=== PATIENT | male | born 1975 | race Caucasian/White ===

== ENCOUNTER 2019-04-22 10:04 | Inpatient (IN) | payer BC ==
[2019-04-22 10:37] LABS: CHLORIDE,CL 98 mEq/L (98-106); SODIUM,NA 137 mEq/L (136-145)
[2019-04-22] MEDS ORDERED: Albuterol/Ipratropium 3.0-0.5 MG/3 ML Neb Soln NEB PRN ×3 (12:10→13:31)
[2019-04-22] MEDS ORDERED: Sodium Chloride 0.9% 10 ML Syringe FLUSH PRN (12:10)
[2019-04-22] MEDS ORDERED: cefTRIAXone 2 GM Vial IVPUSH ONE (12:19)
--- NOTE | 2019-04-22 12:30 | EDM.PDOC ---
ED HPI GENERAL MEDICAL PROBLEM - General Chief Complaint: Fever Stated Complaint: cough and fever with some sob for the past several days, thought had a dental issue and was placed on clinda without relief of his sx, denies any dental sx at present Time Seen by Provider: 04/22/19 11:30 Source of Information: Reports: Patient, Family History Limitations: Reports: No Limitations - History of Present Illness INITIAL COMMENTS - FREE TEXT/NARRATIVE: in with c/o cough and congestion with sob and fevber for past several days, no cp no ear, or throat sx, has had a congested nose, no unusual neck/back pain or stiffness Onset: Other (past several days) Duration: Day(s): Location: Reports: Other (as above) Quality: Reports: Ache Severity: Moderate Improves with: Reports: None Worsens with: Reports: Other (activity) Associated Symptoms: Reports: Cough, cough w sputum, Fever/Chills, Shortness of Breath, Weakness. Denies: Confusion, Chest Pain, Headaches, Nausea/Vomiting, Rash Treatments [employer] MANAGER: Reports: Acetaminophen, Other (see below) (clinda) - Related Data Allergies Allergy/AdvReac Type Severity Reaction Status Date / Time Penicillins Allergy Mild Rash Verified 04/22/19 12:20 lisinopril Allergy Cough Verified 04/22/19 12:29 Home Meds: Home Meds Aspirin [Fran Chewable Aspirin] 1 tab PO BEDTIME 04/22/19 [History] Losartan/Hydrochlorothiazide [Losartan-HCTZ 100-25 MG] 1 tab PO DAILY 04/22/19 [ History] Metoprolol Tartrate 1 tab PO BID 04/22/19 [History] Rosuvastatin Calcium 1 tab PO BEDTIME 04/22/19 [History] Past Medical History - Past Health History Medical/Surgical History: Denies Medical/Surgical History Cardiovascular History: Reports: High Cholesterol, Hypertension Respiratory History: Reports: Other (See Below) Other Respiratory History: hx of sleep apnea Gastrointestinal History: Reports: GERD - Past Surgical History HEENT Surgical History: Reports: Adenoidectomy, LASIK, Tonsillectomy, Other ( See Below) Other HEENT Surgeries/Procedures: uvula-ectomy Social & Family History - Family History Family Medical History: Noncontributory - Tobacco Use Smoking Status *Q: Former Smoker Used Tobacco, but Quit: Yes Month/Year Tobacco Last Used: 2011 - Recreational Drug Use Recreational Drug Use: No ED ROS GENERAL - Review of Systems Review Of Systems: See Below Constitutional: Reports: Fever, Chills, Weakness HEENT: Reports: Sinus Problem. Denies: Throat Pain, Throat Swelling, Vision Change Respiratory: Reports: Shortness of Breath, Cough. Denies: Wheezing Cardiovascular: Denies: Chest Pain, Palpitations, Syncope Endocrine: Reports: Fatigue GI/Abdominal: Denies: Abdominal Pain, Nausea, Vomiting : Reports: No Symptoms Musculoskeletal: Reports: No Symptoms. Denies: Neck Pain, Back Pain Skin: Reports: No Symptoms. Denies: Rash Neurological: Reports: No Symptoms. Denies: Confusion, Dizziness, Headache Psychiatric: Reports: No Symptoms Hematologic/Lymphatic: Reports: No Symptoms Immunologic: Reports: No Symptoms ED EXAM, GENERAL - Physical Exam Exam: See Below Exam Limited By: No Limitations General Appearance: Alert, WD/WN, No Apparent Distress Eye Exam: Bilateral Eye: PERRL Ears: Normal External Exam, Normal Canal, Hearing Grossly Normal, Normal TMs Ear Exam: Bilateral Ear: Auricle Normal, Canal Normal, TM normal Nose: Nasal Drainage Throat/Mouth: Normal Inspection, Normal Lips, Normal Teeth, Normal Gums, Normal Oropharynx, Normal Voice, No Airway Compromise Head: Atraumatic, Normocephalic Neck: Normal Inspection, Supple, Non-Tender, Full Range of Motion Respiratory/Chest: No Respiratory Distress, Lungs Clear, Normal Breath Sounds, Chest Non-Tender Cardiovascular: Normal Peripheral Pulses, Regular Rate, Rhythm, No Edema, No Murmur Peripheral Pulses: 2+: Radial (L), Radial (R) GI/Abdominal: Soft, Non-Tender Back Exam: Normal Inspection, Full Range of Motion Extremities: Normal Inspection, Normal Range of Motion, Non-Tender, No Pedal Edema, Normal Capillary Refill Neurological: Alert, Oriented, Normal Cognition, Normal Gait, No Motor/Sensory Deficits Psychiatric: Normal Affect, Normal Mood Skin Exam: Warm, Dry, Intact, Normal Color, No Rash Course - Vital Signs Last Recorded V/S: Last Vital Signs Temp 37.6 C 04/22/19 12:06 Pulse 104 H 04/22/19 12:06 Resp 18 04/22/19 12:06 BP 133/71 04/22/19 12:06 Pulse Ox 96 04/22/19 12:06 - Orders/Labs/Meds Orders: Active Orders 24 hr Category Date Time Status Patient Status [ADT] Routine ADT 04/22/19 12:11 Active Height and Weight [RC] UPON Care 04/22/19 12:10 Active Intake and Output [RC] QSHIFT Care 04/22/19 12:13 Active Oxygen Therapy [RC] PRN Care 04/22/19 12:11 Active Peripheral IV Care [RC] . DIRECTED Care 04/22/19 12:16 Active Pulse Oximetry [RC] PRN Care 04/22/19 12:13 Active RT Aerosol Therapy [RC] ASDIRECTED Care 04/22/19 12:16 Active Up ad Nette [RC] ASDIRECTED Care 04/22/19 12:10 Active VTE/DVT Education [RC] PER UNIT ROUTINE Care 04/22/19 12:11 Active Vital Signs [RC] Q4H Care 04/22/19 12:11 Active 2 Gram Sodium Diet [DIET] Diet 04/22/19 Lunch Active Chest 2V [CR] Routine Exams 04/22/19 Taken BASIC METABOLIC PANEL,BMP [CHEM] AM Lab 04/23/19 05:11 Ordered C-REACTIVE PROTEIN [CHEM] Stat Lab 04/22/19 12:10 Ordered CBC WITH AUTO DIFF [HEME] AM Lab 04/23/19 05:11 Ordered CRP, HIGH SENSITIVITY [REF] DAILY Lab 04/23/19 07:00 Ordered CULTURE BLOOD [BC] Stat Lab 04/22/19 12:16 Ordered CULTURE BLOOD [BC] Stat Lab 04/22/19 12:16 Ordered UA W/MICROSCOPIC [URIN] Stat Lab 04/22/19 12:10 Ordered Acetaminophen [Tylenol] Med 04/22/19 12:10 Ordered 650 mg PO Q4H PRN Albuterol/Ipratropium [DuoNeb 3.0-0.5 MG/3 ML] Med 04/22/19 12:10 Ordered 3 ml NEB Q4H PRN Azithromycin [Zithromax] 500 mg Med 04/22/19 12:30 Ordered Sodium Chloride 0.9% [Normal Saline] 250 ml IV Q24H Enoxaparin [Lovenox] Med 04/22/19 12:15 Ordered 40 mg SUBCUT Q24H Sodium Chloride 0.9% [Normal Saline] 1,000 ml Med 04/22/19 12:15 Ordered IV ASDIRECTED Sodium Chloride 0.9% [Saline Flush] Med 04/22/19 12:10 Ordered 10 ml FLUSH ASDIRECTED PRN cefTRIAXone [Rocephin] Med 04/22/19 12:30 Ordered 1 gm IVPUSH Q24H cefTRIAXone [Rocephin] Med 04/22/19 12:19 Once 2 gm IVPUSH ONETIME ONE Blood Culture x2 Reflex Set [OM.PC] Stat Oth 04/22/19 12:10 Ordered Peripheral IV Insertion Adult [OM.PC] Routine Oth 04/22/19 12:10 Ordered Resuscitation Status Routine Resus Stat 04/22/19 12:10 Ordered Medication Orders Acetaminophen (Tylenol) 650 mg PO Q4H PRN PRN Reason: Pain (Mild 1-3)/fever Albuterol/Ipratropium (Duoneb 3.0-0.5 Mg/3 Ml) 3 ml NEB Q4H PRN PRN Reason: Shortness Of Breath/wheezing Ceftriaxone Sodium (Rocephin) 2 gm IVPUSH ONETIME ONE Stop: 04/22/19 12:20 Ceftriaxone Sodium (Rocephin) 1 gm IVPUSH Q24H OSMAN Enoxaparin Sodium (Lovenox) 40 mg SUBCUT Q24H OSMAN Azithromycin 500 mg/ Sodium (Chloride) 250 mls @ 250 mls/hr IV Q24H OSMAN Sodium Chloride (Normal Saline) 1,000 mls @ 125 mls/hr IV ASDIRECTED OSMAN Sodium Chloride (Saline Flush) 10 ml FLUSH ASDIRECTED PRN PRN Reason: Keep Vein Open Labs: Laboratory Tests 04/22/19 04/22/19 Range/Units 10:17 10:17 WBC 2.5 L (5.0-10.0) 10^3/uL RBC 4.92 (4.50-6.00) 10^6/uL Hgb 14.5 (14.0-18.0) g/dL Hct 39.7 L (40.0-54.0) % MCV 80.7 L (82.0-94.0) fL MCH 29.5 (27.0-32.0) pg MCHC 36.5 (33.0-38.0) g/dL RDW Coeff of Lily 14.0 (11.0-15.0) % Plt Count 124 L (150-400) 10^3/uL Neut % (Auto) 65.7 (35-85) % Lymph % (Auto) 23.8 (10-55) % [place] % (Auto) 10.1 (0-16) % Eos % (Auto) 0 (0-5) % Baso % (Auto) 0.4 (0-3) % Neut # (Auto) 1.63 L (1.80-7.00) 10^3/uL Lymph # (Auto) 0.59 L (1.00-4.80) 10^3/uL [place] # (Auto) 0.25 (0.00-0.80) 10^3/uL Eos # (Auto) 0.00 (0.00-0.45) 10^3/uL Baso # (Auto) 0.01 10^3/uL Sodium 137 (136-145) mEq/L Potassium 4.2 (3.5-5.0) mEq/L Chloride 98 (98-106) mEq/L Carbon Dioxide 34 H (21-32) mmol/L BUN 14 (7-18) mg/dL Creatinine 1.0 (0.7-1.3) mg/dL Est Cr Clr Drug Dosing TNP Estimated GFR (MDRD) > 60 (>=60) mL/min Glucose 218 H (75-99) mg/dL Calcium 8.6 (8.4-10.1) mg/dL Meds: Medications Generic Name Dose Route Start Last Admin Trade Name Freq PRN Reason Stop Dose Admin Acetaminophen 650 mg 04/22/19 12:10 Tylenol PO Q4H PRN Pain (Mild 1-3)/fever Albuterol/Ipratropium 3 ml 04/22/19 12:10 Duoneb 3.0-0.5 Mg/3 Ml NEB Q4H PRN Shortness Of Breath/wheezing Ceftriaxone Sodium 2 gm 04/22/19 12:19 Rocephin IVPUSH 04/22/19 12:20 ONETIME ONE Ceftriaxone Sodium 1 gm 04/22/19 12:30 Rocephin IVPUSH Q24H OSMAN Enoxaparin Sodium 40 mg 04/22/19 12:15 Lovenox SUBCUT Q24H OSMAN Azithromycin 500 mg/ Sodium 250 mls @ 250 mls/hr 04/22/19 12:30 Chloride IV Q24H OSMAN Sodium Chloride 1,000 mls @ 125 mls/hr 04/22/19 12:15 Normal Saline IV ASDIRECTED OSMAN Sodium Chloride 10 ml 04/22/19 12:10 Saline Flush FLUSH ASDIRECTED PRN Keep Vein Open Departure - Departure Time of Disposition: 12:31 Disposition: Admitted As Inpatient 67 Condition: Good Clinical Impression: Pneumonia, Fever, Shortness of breath, Neutropenia, Thrombocytopenia - Discharge Information *PRESCRIPTION DRUG MONITORING PROGRAM REVIEWED*: Not Applicable *COPY OF PRESCRIPTION DRUG MONITORING REPORT IN PATIENT KATHRIN: Not Applicable - Problem List & Annotations (1) Fever SNOMED Code(s): 607251914 Code(s): R50.9 - FEVER, UNSPECIFIED Status: Acute Priority: High Current Visit: Yes Qualifiers: Encounter type: initial encounter (2) Neutropenia SNOMED Code(s): 075672039 Code(s): D70.9 - NEUTROPENIA, UNSPECIFIED Status: Acute Priority: High Current Visit: Yes Qualifiers: Neutropenia type: unspecified Qualified Code(s): D70.9 - Neutropenia, unspecified (3) Pneumonia SNOMED Code(s): 751331144 Code(s): J18.9 - PNEUMONIA, UNSPECIFIED ORGANISM Status: Acute Priority: High Current Visit: Yes Qualifiers: Laterality: right Lung location: middle lobe of lung (4) Shortness of breath SNOMED Code(s): 113046014 Code(s): R06.02 - SHORTNESS OF BREATH Status: Acute Priority: High Current Visit: Yes (5) Thrombocytopenia SNOMED Code(s): 266427184 Code(s): D69.6 - THROMBOCYTOPENIA, UNSPECIFIED Status: Acute Priority: High Current Visit: Yes - Problem List Review Problem List Initiated/Reviewed/Updated: Yes - My Orders Last 24 Hours: My Active Orders 04/22/19 Chest 2V [CR] Routine 04/22/19 12:10 Height and Weight [RC] UPON Up ad Nette [RC] ASDIRECTED C-REACTIVE PROTEIN [CHEM] Stat UA W/MICROSCOPIC [URIN] Stat Acetaminophen [Tylenol] 650 mg PO Q4H PRN Albuterol/Ipratropium [DuoNeb 3.0-0.5 MG/3 ML] 3 ml NEB Q4H PRN Sodium Chloride 0.9% [Saline Flush] 10 ml FLUSH ASDIRECTED PRN Blood Culture x2 Reflex Set [OM.PC] Stat Peripheral IV Insertion Adult [OM.PC] Routine Resuscitation Status Routine 04/22/19 12:11 Patient Status [ADT] Routine Oxygen Therapy [RC] PRN VTE/DVT Education [RC] PER UNIT ROUTINE Vital Signs [RC] Q4H 04/22/19 12:13 Intake and Output [RC] QSHIFT Pulse Oximetry [RC] PRN 04/22/19 12:15 Enoxaparin [Lovenox] 40 mg SUBCUT Q24H Sodium Chloride 0.9% [Normal Saline] 1,000 ml IV ASDIRECTED 04/22/19 12:16 Peripheral IV Care [RC] . DIRECTED RT Aerosol Therapy [RC] ASDIRECTED CULTURE BLOOD [BC] Stat CULTURE BLOOD [BC] Stat 04/22/19 12:19 cefTRIAXone [Rocephin] 2 gm IVPUSH ONETIME ONE 04/22/19 12:30 Azithromycin [Zithromax] 500 mg Sodium Chloride 0.9% [Normal Saline] 250 ml IV Q24H cefTRIAXone [Rocephin] 1 gm IVPUSH Q24H 04/22/19 Lunch 2 Gram Sodium Diet [DIET] 04/23/19 05:11 BASIC METABOLIC PANEL,BMP [CHEM] AM CBC WITH AUTO DIFF [HEME] AM 04/23/19 07:00 CRP, HIGH SENSITIVITY [REF] DAILY - Assessment/Plan Admission H&P: Please use this note as an admission H&P Last 24 Hours: My Active Orders 04/22/19 Chest 2V [CR] Routine 04/22/19 12:10 Height and Weight [RC] UPON Up ad Nette [RC] ASDIRECTED C-REACTIVE PROTEIN [CHEM] Stat UA W/MICROSCOPIC [URIN] Stat Acetaminophen [Tylenol] 650 mg PO Q4H PRN Albuterol/Ipratropium [DuoNeb 3.0-0.5 MG/3 ML] 3 ml NEB Q4H PRN Sodium Chloride 0.9% [Saline Flush] 10 ml FLUSH ASDIRECTED PRN Blood Culture x2 Reflex Set [OM.PC] Stat Peripheral IV Insertion Adult [OM.PC] Routine Resuscitation Status Routine 04/22/19 12:11 Patient Status [ADT] Routine Oxygen Therapy [RC] PRN VTE/DVT Education [RC] PER UNIT ROUTINE Vital Signs [RC] Q4H 06/15/19 12:13 Intake and Output [RC] QSHIFT Pulse Oximetry [RC] PRN 04/22/19 12:15 Enoxaparin [Lovenox] 40 mg SUBCUT Q24H Sodium Chloride 0.9% [Normal Saline] 1,000 ml IV ASDIRECTED 04/22/19 12:16 Peripheral IV Care [RC] . DIRECTED RT Aerosol Therapy [RC] ASDIRECTED CULTURE BLOOD [BC] Stat CULTURE BLOOD [BC] Stat 04/22/19 12:19 cefTRIAXone [Rocephin] 2 gm IVPUSH ONETIME ONE 04/22/19 12:30 Azithromycin [Zithromax] 500 mg Sodium Chloride 0.9% [Normal Saline] 250 ml IV Q24H cefTRIAXone [Rocephin] 1 gm IVPUSH Q24H 04/22/19 Lunch 2 Gram Sodium Diet [DIET] 04/23/19 05:11 BASIC METABOLIC PANEL,BMP [CHEM] AM CBC WITH AUTO DIFF [HEME] AM 04/23/19 07:00 CRP, HIGH SENSITIVITY [REF] DAILY Plan: will admit to the hospital in observation, will start on IVF with Rocephin and zithromax IV, will give HHN tx of duoneb q4hr and will reassess in the am. It is unclear why his WBC and PLT are low, will monitor them. will make changes as needed
[2019-04-22] MEDS ORDERED: Enoxaparin 40 MG/0.4 ML Syringe SUBCUT SCH (13:00)
[2019-04-22] MEDS: Azithromycin 500 MG in Sodium Chloride 0.9% 250 ML IV SCH (13:55)
[2019-04-22] MEDS: Sodium Chloride 0.9% 1,000 ML IV SCH ×2 (13:55→23:07)
[2019-04-22] MEDS: Acetaminophen 325 MG Tab PO PRN ×2 (14:09→20:01)
[2019-04-22] MEDS: Albuterol/Ipratropium 3.0-0.5 MG/3 ML Neb Soln NEB SCH ×3 (14:09→19:59)
[2019-04-22] MEDS ORDERED: Simvastatin 40 MG Tab PO SCH (20:00)
[2019-04-22] MEDS: Metoprolol Tartrate 50 MG Tab PO SCH (20:01)
[2019-04-22] MEDS: Aspirin 81 MG Tab.Chew PO SCH (20:01)
[2019-04-22] MEDS: Temazepam 15 MG Cap PO PRN (23:06)
[2019-04-23] MEDS: Ibuprofen 200 MG Tab PO PRN ×3 (03:36→23:09)
[2019-04-23] MEDS: Albuterol/Ipratropium 3.0-0.5 MG/3 ML Neb Soln NEB SCH ×4 (07:55→20:17)
[2019-04-23] MEDS: LOSARTAN PO SCH (07:56)
[2019-04-23] MEDS: Metoprolol Tartrate 50 MG Tab PO SCH ×2 (07:56→20:17)
[2019-04-23] MEDS: HCTZ PO SCH (07:56)
[2019-04-23] MEDS ORDERED: Hydrochlorothiazide 25 MG Tab PO SCH (08:00)
[2019-04-23] MEDS ORDERED: HYDROCHLOROTHIAZIDE PO SCH (08:00)
[2019-04-23] MEDS ORDERED: Losartan 100 MG Tab PO SCH (08:00)
[2019-04-23] MEDS ORDERED: LOSARTAN PO SCH (08:00)
[2019-04-23 08:29] LABS: CHLORIDE,CL 99 mEq/L (98-106); SODIUM,NA 138 mEq/L (136-145)
[2019-04-23] MEDS: cefTRIAXone 1 GM Vial IVPUSH SCH (11:10)
--- NOTE | 2019-04-23 11:44 | PCM.PN ---
- General Info Date of Service: 04/23/19 Admission Dx/Problem (Free Text): RML pneumonia - Review of Systems General: Reports: Fever, Fatigue HEENT: Reports: No Symptoms Pulmonary: Reports: Shortness of Breath, Cough. Denies: Wheezing Cardiovascular: Reports: No Symptoms. Denies: Chest Pain Gastrointestinal: Reports: No Symptoms. Denies: Abdominal Pain, Nausea, Vomiting Genitourinary: Reports: No Symptoms Musculoskeletal: Reports: No Symptoms Skin: Reports: No Symptoms Neurological: Reports: No Symptoms Psychiatric: Reports: No Symptoms - Patient Data Vitals - Most Recent: Last Vital Signs Temp 37.3 C 04/23/19 11:05 Pulse 94 04/23/19 11:05 Resp 18 04/23/19 11:05 BP 114/63 04/23/19 11:05 Pulse Ox 100 04/23/19 11:05 Weight - Most Recent: 158.757 kg I&O - Last 24 Hours: Intake & Output 04/22/19 04/23/19 04/23/19 22:59 06:59 14:59 Intake Total 1000 Balance 1000 Lab Results Last 24 Hours: Laboratory Results - last 24 hr 04/22/19 04/22/19 04/23/19 Range/Units 10:17 12:10 08:05 WBC 2.4 L (5.0-10.0) 10^3/uL RBC 4.42 L (4.50-6.00) 10^6/uL Hgb 13.0 L (14.0-18.0) g/dL Hct 36.3 L (40.0-54.0) % MCV 82.1 (82.0-94.0) fL MCH 29.4 (27.0-32.0) pg MCHC 35.8 (33.0-38.0) g/dL RDW Coeff of Lily 14.0 (11.0-15.0) % Plt Count 105 L (150-400) 10^3/uL Neut % (Auto) 52.2 (35-85) % Lymph % (Auto) 36.1 (10-55) % [place] % (Auto) 10.9 (0-16) % Eos % (Auto) 0.4 (0-5) % Baso % (Auto) 0.4 (0-3) % Neut # (Auto) 1.24 L (1.80-7.00) 10^3/uL Lymph # (Auto) 0.86 L (1.00-4.80) 10^3/uL [place] # (Auto) 0.26 (0.00-0.80) 10^3/uL Eos # (Auto) 0.01 (0.00-0.45) 10^3/uL Baso # (Auto) 0.01 10^3/uL Sodium (136-145) mEq/L Potassium (3.5-5.0) mEq/L Chloride (98-106) mEq/L Carbon Dioxide (21-32) mmol/L BUN (7-18) mg/dL Creatinine (0.7-1.3) mg/dL Est Cr Clr Drug Dosing mL/min Estimated GFR (MDRD) (>=60) mL/min Glucose (75-99) mg/dL Calcium (8.4-10.1) mg/dL C-Reactive Protein 8.6 H (0.2-0.8) mg/dL Urine Color Yellow (YELLOW) Urine Appearance Cloudy (CLEAR) Urine pH 5.5 (4.5-8.0) Ur Specific [place] 1.015 (1.003-1.020) Urine Protein Negative (NEGATIVE) mg/dL Urine Glucose (UA) 250 H (NEGATIVE) mg/dL Urine Ketones Negative (NEGATIVE) mg/dL Urine Occult Blood Negative (NEGATIVE) Urine Nitrite Negative (NEGATIVE) Urine Bilirubin Negative (NEGATIVE) Urine Urobilinogen 0.2 (0.2-1.0) EU/dL Ur Leukocyte Esterase Negative (NEGATIVE) Urine RBC Not seen (0-5) /HPF Urine WBC 0-5 (0-5) /HPF Ur Squamous Epith Cells Rare (NOT SEEN) /HPF Amorphous Sediment Many H (NOT SEEN) /HPF Urine Bacteria Occasional H (NOT SEEN) /HPF 04/23/19 04/23/19 Range/Units 08:05 08:05 WBC (5.0-10.0) 10^3/uL RBC (4.50-6.00) 10^6/uL Hgb (14.0-18.0) g/dL Hct (40.0-54.0) % MCV (82.0-94.0) fL MCH (27.0-32.0) pg MCHC (33.0-38.0) g/dL RDW Coeff of Lily (11.0-15.0) % Plt Count (150-400) 10^3/uL Neut % (Auto) (35-85) % Lymph % (Auto) (10-55) % [place] % (Auto) (0-16) % Eos % (Auto) (0-5) % Baso % (Auto) (0-3) % Neut # (Auto) (1.80-7.00) 10^3/uL Lymph # (Auto) (1.00-4.80) 10^3/uL [place] # (Auto) (0.00-0.80) 10^3/uL Eos # (Auto) (0.00-0.45) 10^3/uL Baso # (Auto) 10^3/uL Sodium 138 (136-145) mEq/L Potassium 3.9 (3.5-5.0) mEq/L Chloride 99 (98-106) mEq/L Carbon Dioxide 30 (21-32) mmol/L BUN 13 (7-18) mg/dL Creatinine 0.9 (0.7-1.3) mg/dL Est Cr Clr Drug Dosing 141.71 mL/min Estimated GFR (MDRD) > 60 (>=60) mL/min Glucose 211 H (75-99) mg/dL Calcium 8.1 L (8.4-10.1) mg/dL C-Reactive Protein 12.0 H (0.2-0.8) mg/dL Urine Color (YELLOW) Urine Appearance (CLEAR) Urine pH (4.5-8.0) Ur Specific [place] (1.003-1.020) Urine Protein (NEGATIVE) mg/dL Urine Glucose (UA) (NEGATIVE) mg/dL Urine Ketones (NEGATIVE) mg/dL Urine Occult Blood (NEGATIVE) Urine Nitrite (NEGATIVE) Urine Bilirubin (NEGATIVE) Urine Urobilinogen (0.2-1.0) EU/dL Ur Leukocyte Esterase (NEGATIVE) Urine RBC (0-5) /HPF Urine WBC (0-5) /HPF Ur Squamous Epith Cells (NOT SEEN) /HPF Amorphous Sediment (NOT SEEN) /HPF Urine Bacteria (NOT SEEN) /HPF Med Orders - Current: Current Medications Acetaminophen (Tylenol) 650 mg PO Q4H PRN PRN Reason: Pain (Mild 1-3)/fever Last Admin: 04/22/19 20:01 Dose: 650 mg Albuterol/Ipratropium (Duoneb 3.0-0.5 Mg/3 Ml) 3 ml NEB QID [facility] Last Admin: 04/23/19 11:10 Dose: 3 ml Albuterol/Ipratropium (Duoneb 3.0-0.5 Mg/3 Ml) 3 ml NEB Q4H PRN PRN Reason: Dyspnea Aspirin (Aspirin) 81 mg PO BEDTIME [facility] Last Admin: 04/22/19 20:01 Dose: 81 mg Ceftriaxone Sodium (Rocephin) 1 gm IVPUSH Q24H [facility] Last Admin: 04/23/19 11:10 Dose: 1 gm Azithromycin 500 mg/ Sodium (Chloride) 250 mls @ 250 mls/hr IV Q24H [facility] Last Admin: 04/22/19 13:55 Dose: 250 mls/hr Sodium Chloride (Normal Saline) 1,000 mls @ 125 mls/hr IV ASDIRECTED [facility] Last Admin: 04/22/19 23:07 Dose: 125 mls/hr Ibuprofen (Motrin) 400 mg PO Q4H PRN PRN Reason: Fever Last Admin: 04/23/19 03:36 Dose: 400 mg Metoprolol Tartrate (Lopressor) 50 mg PO BID [facility] Last Admin: 04/23/19 07:56 Dose: 50 mg Ptom Losartan/ (Hctz 100/25 Mg Tab) 1 tab PO DAILY [facility] Last Admin: 04/23/19 07:56 Dose: 1 tab Ptom Rosuvastatin 10 Mg Tab 10 mg PO BEDTIME [facility] Sodium Chloride (Saline Flush) 10 ml FLUSH ASDIRECTED PRN PRN Reason: Keep Vein Open Temazepam (Restoril) 15 mg PO BEDTIME PRN PRN Reason: Insomnia Last Admin: 04/22/19 23:06 Dose: 15 mg Discontinued Medications Albuterol/Ipratropium (Duoneb 3.0-0.5 Mg/3 Ml) 3 ml NEB Q4H PRN PRN Reason: Shortness Of Breath/wheezing Albuterol/Ipratropium (Duoneb 3.0-0.5 Mg/3 Ml) 3 ml NEB QID PRN PRN Reason: Shortness Of Breath/wheezing Ceftriaxone Sodium (Rocephin) 2 gm IVPUSH ONETIME ONE Stop: 04/22/19 12:20 Last Admin: 04/22/19 13:52 Dose: 2 gm Enoxaparin Sodium (Lovenox) 40 mg SUBCUT Q24H [facility] Last Admin: 04/22/19 13:36 Dose: Not Given Hydrochlorothiazide (Hydrochlorothiazide) 25 mg PO DAILY [facility] Losartan Potassium (Cozaar) 100 mg PO DAILY [facility] Losartan/Hydrochlorothiazide 100mg-25mg 1 tab PO DAILY [facility] Simvastatin (Zocor) 40 mg PO BEDTIME [facility] Last Admin: 04/22/19 19:59 Dose: 40 mg - Exam General: Alert, Oriented Neck: Supple Lungs: Clear to Auscultation, Normal Respiratory Effort Cardiovascular: Regular Rate, Regular Rhythm. No: Murmurs GI/Abdominal Exam: Soft. No: Non-Tender Back Exam: Normal Inspection, Full Range of Motion Extremities: Normal Inspection, Normal Range of Motion, Non-Tender, No Pedal Edema, Normal Capillary Refill Peripheral Pulses: 2+: Radial (L), Posterior Tibial (L), Posterior Tibial (R) Skin: Warm, Dry, Intact Neurological: No New Focal Deficit Psy/Mental Status: Alert, Normal Affect, Normal Mood - Problem List & Annotations (1) Fever SNOMED Code(s): 305367380 Code(s): R50.9 - FEVER, UNSPECIFIED Status: Acute Priority: High Current Visit: Yes Qualifiers: Encounter type: initial encounter (2) Neutropenia SNOMED Code(s): 562207894 Code(s): D70.9 - NEUTROPENIA, UNSPECIFIED Status: Acute Priority: High Current Visit: Yes Qualifiers: Neutropenia type: unspecified Qualified Code(s): D70.9 - Neutropenia, unspecified (3) Pneumonia SNOMED Code(s): 234246408 Code(s): J18.9 - PNEUMONIA, UNSPECIFIED ORGANISM Status: Acute Priority: High Current Visit: Yes Qualifiers: Laterality: right Lung location: middle lobe of lung (4) Shortness of breath SNOMED Code(s): 316329515 Code(s): R06.02 - SHORTNESS OF BREATH Status: Acute Priority: High Current Visit: Yes (5) Thrombocytopenia SNOMED Code(s): 738811091 Code(s): D69.6 - THROMBOCYTOPENIA, UNSPECIFIED Status: Acute Priority: High Current Visit: Yes - Problem List Review Problem List Initiated/Reviewed/Updated: Yes - My Orders Last 24 Hours: My Active Orders 04/22/19 12:10 Up ad Nette [RC] .PRN Acetaminophen [Tylenol] 650 mg PO Q4H PRN Sodium Chloride 0.9% [Saline Flush] 10 ml FLUSH ASDIRECTED PRN Blood Culture x2 Reflex Set [OM.PC] Stat Peripheral IV Insertion Adult [OM.PC] Routine Resuscitation Status Routine 04/22/19 12:11 Patient Status [ADT] Routine Oxygen Therapy [RC] .PRN Vital Signs [RC] 0000,0400,0800,1200,1600,2000 04/22/19 12:13 Intake and Output [RC] .PRN Pulse Oximetry [RC] .PRN 04/22/19 12:15 Sodium Chloride 0.9% [Normal Saline] 1,000 ml IV ASDIRECTED 04/22/19 12:16 Peripheral IV Care [RC] 0800,2000 RT Aerosol Therapy [RC] 0800,1200,1600,2000 CULTURE BLOOD [BC] Stat CULTURE BLOOD [BC] Stat 04/22/19 13:00 Azithromycin [Zithromax] 500 mg Sodium Chloride 0.9% [Normal Saline] 250 ml IV Q24H 04/22/19 13:30 Albuterol/Ipratropium [DuoNeb 3.0-0.5 MG/3 ML] 3 ml NEB QID 04/22/19 13:31 Albuterol/Ipratropium [DuoNeb 3.0-0.5 MG/3 ML] 3 ml NEB Q4H PRN 04/22/19 20:00 Aspirin 81 mg PO BEDTIME Metoprolol Tartrate [Lopressor] 50 mg PO BID 04/22/19 20:08 Temazepam [Restoril] 15 mg PO BEDTIME PRN 04/22/19 22:56 Ibuprofen [Motrin] 400 mg PO Q4H PRN 04/22/19 Lunch 2 Gram Sodium Diet [DIET] 04/23/19 08:00 Losartan/Hctz 100/25 Mg 1 tab PO DAILY 04/23/19 12:00 cefTRIAXone [Rocephin] 1 gm IVPUSH Q24H 04/23/19 20:00 Rosuvastatin 10 mg PO BEDTIME - Plan Plan:: 04/23/2019; 1130am pt still feels weak, continues with a cough and has had a low grade fever off and on, highest has been 100.2, the pts wbc is unchanged, his crp has increased , his plt has decreased, will keep in the hospital with continued IVF, and antibx IV, will continue HHN and ICS, will repeat blood work in the am and cxr. will adjust tx as needed, I spent 20 minutes discussing condition and tx plan with pt and his
[2019-04-23] MEDS: Azithromycin 500 MG in Sodium Chloride 0.9% 250 ML IV SCH (12:01)
[2019-04-23] MEDS ORDERED: ROSUVASTATIN 10 MG PO SCH (20:00)
[2019-04-23] MEDS: Aspirin 81 MG Tab.Chew PO SCH (20:18)
[2019-04-23] MEDS: Temazepam 15 MG Cap PO PRN (23:01)
[2019-04-24] MEDS: Acetaminophen 325 MG Tab PO PRN ×2 (00:21→10:12)
[2019-04-24] MEDS: Codeine/Promethazine 10-6.25 MG/5 ML Syrup 5 ML UD Cup PO PRN ×2 (00:21→10:07)
[2019-04-24] MEDS ORDERED: Codeine/Promethazine 10-6.25 MG/5 ML Syrup 5 ML UD Cup ONE (00:26)
[2019-04-24] MEDS: Albuterol/Ipratropium 3.0-0.5 MG/3 ML Neb Soln NEB SCH ×4 (07:45→19:38)
[2019-04-24] MEDS: Metoprolol Tartrate 50 MG Tab PO SCH ×2 (08:04→19:38)
[2019-04-24] MEDS: LOSARTAN PO SCH (08:05)
[2019-04-24] MEDS: HCTZ PO SCH (08:05)
[2019-04-24 08:12] LABS: CHLORIDE,CL 100 mEq/L (98-106); SODIUM,NA 138 mEq/L (136-145)
[2019-04-24] MEDS: methylPREDNISolone Sodium Succinate 125 MG/2 ML SDV IVPUSH SCH (09:48)
[2019-04-24] MEDS: cefTRIAXone 1 GM Vial IVPUSH SCH (12:05)
[2019-04-24] MEDS: Azithromycin 500 MG in Sodium Chloride 0.9% 250 ML IV SCH (12:05)
[2019-04-24] MEDS: Aspirin 81 MG Tab.Chew PO SCH (19:38)
[2019-04-24] MEDS ORDERED: Simvastatin 40 MG Tab PO SCH (20:00)
--- NOTE | 2019-04-24 21:10 | PCM.PN ---
- General Info Date of Service: 04/24/19 Admission Dx/Problem (Free Text): RML pneumonia Functional Status: Reports: Pain Controlled, Tolerating Diet, Ambulating - Review of Systems General: Reports: Fever, Weakness, Fatigue, Malaise HEENT: Reports: Sinus Congestion, Rhinitis Pulmonary: Reports: Shortness of Breath, Cough, Wheezing. Denies: Sputum Cardiovascular: Denies: Chest Pain, Edema, Lightheadedness Gastrointestinal: Reports: Decreased Appetite. Denies: Abdominal Pain, Nausea, Vomiting Genitourinary: Reports: No Symptoms Musculoskeletal: Reports: No Symptoms Skin: Reports: No Symptoms Neurological: Reports: No Symptoms - Patient Data Vitals - Most Recent: Last Vital Signs Temp 95.6 F 04/24/19 16:00 Pulse 95 04/24/19 19:38 Resp 16 04/24/19 16:00 BP 153/76 H 04/24/19 19:38 Pulse Ox 97 04/24/19 16:00 Weight - Most Recent: 350 lb Lab Results Last 24 Hours: Laboratory Results - last 24 hr 04/24/19 04/24/19 Range/Units 07:00 07:00 WBC 2.7 L (5.0-10.0) 10^3/uL RBC 4.44 L (4.50-6.00) 10^6/uL Hgb 13.0 L (14.0-18.0) g/dL Hct 36.4 L (40.0-54.0) % MCV 82.0 (82.0-94.0) fL MCH 29.3 (27.0-32.0) pg MCHC 35.7 (33.0-38.0) g/dL RDW Coeff of Lily 14.3 (11.0-15.0) % Plt Count 107 L (150-400) 10^3/uL Neut % (Auto) 64.1 (35-85) % Lymph % (Auto) 23.5 (10-55) % [place] % (Auto) 11.6 (0-16) % Eos % (Auto) 0.4 (0-5) % Baso % (Auto) 0.4 (0-3) % Neut # (Auto) 1.72 L (1.80-7.00) 10^3/uL Lymph # (Auto) 0.63 L (1.00-4.80) 10^3/uL [place] # (Auto) 0.31 (0.00-0.80) 10^3/uL Eos # (Auto) 0.01 (0.00-0.45) 10^3/uL Baso # (Auto) 0.01 10^3/uL Sodium 138 (136-145) mEq/L Potassium 4.6 (3.5-5.0) mEq/L Chloride 100 (98-106) mEq/L Carbon Dioxide 35 H (21-32) mmol/L BUN 13 (7-18) mg/dL Creatinine 0.9 (0.7-1.3) mg/dL Est Cr Clr Drug Dosing 141.71 mL/min Estimated GFR (MDRD) > 60 (>=60) mL/min Glucose 221 H (75-99) mg/dL Calcium 8.3 L (8.4-10.1) mg/dL C-Reactive Protein 14.5 H (0.2-0.8) mg/dL Barry Results Last 24 Hours: Microbiology 04/23/19 08:10 Aerobic Blood Culture - Preliminary Blood - Venous - Lab Draw NO GROWTH AFTER 1 DAY Anaerobic Blood Culture - Preliminary NO GROWTH AFTER 1 DAY 04/23/19 08:05 Aerobic Blood Culture - Preliminary Blood - Venous NO GROWTH AFTER 1 DAY Anaerobic Blood Culture - Preliminary NO GROWTH AFTER 1 DAY Med Orders - Current: Current Medications Acetaminophen (Tylenol) 650 mg PO Q4H PRN PRN Reason: Pain (Mild 1-3)/fever Last Admin: 04/24/19 10:12 Dose: 650 mg Albuterol/Ipratropium (Duoneb 3.0-0.5 Mg/3 Ml) 3 ml NEB QID [facility] Last Admin: 04/24/19 19:38 Dose: 3 ml Albuterol/Ipratropium (Duoneb 3.0-0.5 Mg/3 Ml) 3 ml NEB Q4H PRN PRN Reason: Dyspnea Aspirin (Aspirin) 81 mg PO BEDTIME [facility] Last Admin: 04/24/19 19:38 Dose: 81 mg Ceftriaxone Sodium (Rocephin) 1 gm IVPUSH Q24H [facility] Last Admin: 04/24/19 12:05 Dose: 1 gm Hydrochlorothiazide (Hydrochlorothiazide) 25 mg PO DAILY [facility] Azithromycin 500 mg/ Sodium (Chloride) 250 mls @ 250 mls/hr IV DAILY@1200 [facility] Last Admin: 04/24/19 12:05 Dose: 250 mls/hr Ibuprofen (Motrin) 400 mg PO Q4H PRN PRN Reason: Fever Last Admin: 04/23/19 23:09 Dose: 400 mg Losartan Potassium (Cozaar) 100 mg PO DAILY [facility] Methylprednisolone Sodium Succinate (Solu-Medrol) 125 mg IVPUSH DAILY [facility] Last Admin: 04/24/19 09:48 Dose: 125 mg Metoprolol Tartrate (Lopressor) 50 mg PO BID [facility] Last Admin: 04/24/19 19:38 Dose: 50 mg Promethazine HCl/Codeine (Phenergan With Codeine) 5 ml PO Q6H PRN PRN Reason: Cough Last Admin: 04/24/19 10:07 Dose: 5 ml Simvastatin (Zocor) 40 mg PO BEDTIME [facility] Last Admin: 04/24/19 19:39 Dose: 40 mg Sodium Chloride (Saline Flush) 10 ml FLUSH ASDIRECTED PRN PRN Reason: Keep Vein Open Temazepam (Restoril) 15 mg PO BEDTIME PRN PRN Reason: Insomnia Last Admin: 04/23/19 23:01 Dose: 15 mg Discontinued Medications Albuterol/Ipratropium (Duoneb 3.0-0.5 Mg/3 Ml) 3 ml NEB Q4H PRN PRN Reason: Shortness Of Breath/wheezing Albuterol/Ipratropium (Duoneb 3.0-0.5 Mg/3 Ml) 3 ml NEB QID PRN PRN Reason: Shortness Of Breath/wheezing Ceftriaxone Sodium (Rocephin) 2 gm IVPUSH ONETIME ONE Stop: 04/22/19 12:20 Last Admin: 04/22/19 13:52 Dose: 2 gm Enoxaparin Sodium (Lovenox) 40 mg SUBCUT Q24H [facility] Last Admin: 04/22/19 13:36 Dose: Not Given Hydrochlorothiazide (Hydrochlorothiazide) 25 mg PO DAILY [facility] Azithromycin 500 mg/ Sodium (Chloride) 250 mls @ 250 mls/hr IV Q24H [facility] Last Admin: 04/23/19 12:01 Dose: 250 mls/hr Sodium Chloride (Normal Saline) 1,000 mls @ 125 mls/hr IV ASDIRECTED [facility] Last Admin: 04/22/19 23:07 Dose: 125 mls/hr Losartan Potassium (Cozaar) 100 mg PO DAILY [facility] Losartan/Hydrochlorothiazide 100mg-25mg 1 tab PO DAILY [facility] Ptom Losartan/ (Hctz 100/25 Mg Tab) 1 tab PO DAILY [facility] Last Admin: 04/24/19 08:05 Dose: 1 tab Ptom Rosuvastatin 10 Mg Tab 10 mg PO BEDTIME [facility] Last Admin: 04/23/19 20:17 Dose: 10 mg Promethazine HCl/Codeine (Phenergan With Codeine) Confirm Administered Dose 5 ml .ROUTE .STK-MED ONE Stop: 04/24/19 00:27 Last Admin: 04/24/19 00:25 Dose: Not Given Simvastatin (Zocor) 40 mg PO BEDTIME [facility] Last Admin: 04/22/19 19:59 Dose: 40 mg - Exam General: Alert, Oriented HEENT: Mucous Membr. Moist/[place] Neck: Supple Lungs: Normal Respiratory Effort, Decreased Breath Sounds Cardiovascular: Regular Rate, Regular Rhythm GI/Abdominal Exam: Normal Bowel Sounds, Soft, Non-Tender Extremities: Normal Inspection, No Pedal Edema Skin: Warm, Dry Neurological: No New Focal Deficit - Problem List & Annotations (1) Pneumonia SNOMED Code(s): 982722188 Code(s): J18.9 - PNEUMONIA, UNSPECIFIED ORGANISM Status: Acute Priority: High Current Visit: Yes Qualifiers: Pneumonia type: due to unspecified organism Laterality: right Lung location: middle lobe of lung Qualified Code(s): J18.1 - Lobar pneumonia, unspecified organism - Problem List Review Problem List Initiated/Reviewed/Updated: Yes - My Orders Last 24 Hours: My Active Orders 04/24/19 09:12 Patient Status [ADT] Routine 04/24/19 09:15 methylPREDNISolone Sod Succ [Solu-MEDROL] 125 mg IVPUSH DAILY 04/25/19 05:11 BASIC METABOLIC PANEL,BMP [CHEM] AM C-REACTIVE PROTEIN [CHEM] AM CBC WITH AUTO DIFF [HEME] AM - Assessment Assessment:: RML Pneumonia - Plan Plan:: 04/23/2019; 1130am pt still feels weak, continues with a cough and has had a low grade fever off and on, highest has been 100.2, the pts wbc is unchanged, his crp has increased , his plt has decreased, will keep in the hospital with continued IVF, and antibx IV, will continue HHN and ICS, will repeat blood work in the am and cxr. will adjust tx as needed, I spent 20 minutes discussing condition and tx plan with pt and his 04-24-2019 Patient continues to feel fatigue and shortness of breath. Reports wheezing this am. Fever spiked to 102.5 at midnight. Continues to have ongoing cough, nonproductive. WBC still remains low at 2.7, platelets 107. Hemoglobin normal. Blood cultures negative. CRP continues to increase, 14.5 today. Will continue with IV Zithromax and Rocephin. Nebs. Add Solu Medrol daily. Repeat labs due to ongoing leukopenia and neutropenia. Inappropriate for discharge.
[2019-04-25] MEDS: Codeine/Promethazine 10-6.25 MG/5 ML Syrup 5 ML UD Cup PO PRN (02:24)
[2019-04-25] MEDS ORDERED: Hydrochlorothiazide 25 MG Tab PO SCH (08:00)
[2019-04-25] MEDS ORDERED: Losartan 100 MG Tab PO SCH (08:00)
[2019-04-25 08:10] LABS: CHLORIDE,CL 99 mEq/L (98-106); SODIUM,NA 136 mEq/L (136-145)
[2019-04-25] MEDS: Albuterol/Ipratropium 3.0-0.5 MG/3 ML Neb Soln NEB SCH (08:11)
[2019-04-25] MEDS: Metoprolol Tartrate 50 MG Tab PO SCH (08:11)
[2019-04-25] MEDS: methylPREDNISolone Sodium Succinate 125 MG/2 ML SDV IVPUSH SCH (08:12)
[2019-04-25 08:29] LABS: HEMOGLOBIN A1C 7.7 % (4.8-6.2)
[2019-04-25] MEDS: cefTRIAXone 1 GM Vial IVPUSH SCH (09:02)
[2019-04-25] MEDS: Azithromycin 500 MG in Sodium Chloride 0.9% 250 ML IV SCH (09:06)
--- NOTE | 2019-04-25 21:45 | PCM.DCSUM1 ---
Discharge Summary - Hospital Course Free Text/Narrative:: Patient presented to ER with complaints of cough and fever. Has had increased weakness, shortness of breath. Had been noting increased sinus congestion, had tooth pain so thought was a dental issue. Was placed on Clindamycin and did not get much relief. WBC low at 2.5. CRP 8.6. Platelets low at 124. Urine negative. Chest xray shows RML pneumonia. Admitted and started on IV fluids, Zithromax and Rocephin. Neb treatments Diagnosis: Stroke: No Modified [place] Scale: No Symptoms at All Modified [place] Scale Score: 0 - Discharge Data Discharge Date: 04/25/19 Discharge Disposition: Home, Self-Care 01 Condition: Good - Discharge Diagnosis/Problem(s) (1) Pneumonia SNOMED Code(s): 728276807 ICD Code: J18.9 - PNEUMONIA, UNSPECIFIED ORGANISM Status: Acute Priority : High Qualifiers: Pneumonia type: due to unspecified organism Laterality: right Lung location: middle lobe of lung Qualified Code(s): J18.1 - Lobar pneumonia, unspecified organism - Patient Summary/Data Complications: none Hospital Course: Patient feeling better today. Has had concerns with weakness and shortness of breath. Was running fevers until yesterday. Wheezing at times. Appetite has been poor. Leukopenia present on admit, has persisted through hospital stay. Did improve to 3.8 today, platelets up to 174. Results likely related to infection, question viral in nature. Blood cultures negative. Blood sugars have been over 200, worse today after receiving steroid. A1C checked, 7.7. Relates that was on metformin about 6 months ago when it was 7.2, took for about 3 months and A1C had improved to 6.8. As he did not tolerate metformin well, has been trying diet and exercise. Admits that has been a struggle due to long work days as of late. Lung sounds improved. Has good air exchange throughout. Will discharge home on Ceftin and prednisone. Recheck labs prior to appointment with Frankie Little, check WBC and platelets. Discuss restarting diabetic meds at visit. Rest through the week. - Patient Instructions Diet: Diabetic Diet Activity: As Tolerated - Discharge Plan *PRESCRIPTION DRUG MONITORING PROGRAM REVIEWED*: Not Applicable *COPY OF PRESCRIPTION DRUG MONITORING REPORT IN PATIENT KATHRIN: Not Applicable Prescriptions/Med Rec: Cefuroxime [Ceftin] 250 mg PO BID #20 tab Codeine/Promethazine [Phenergan with Codeine] 5 ml PO Q6H PRN #180 ml PRN Reason: Cough predniSONE 20 mg PO WITHBREAKFAST #10 tab Home Medications: Home Meds Aspirin [Fran Chewable Aspirin] 1 tab PO BEDTIME 04/22/19 [History] Losartan/Hydrochlorothiazide [Losartan-HCTZ 100-25 MG] 1 tab PO DAILY 04/22/19 [ History] Metoprolol Tartrate 1 tab PO BID 04/22/19 [History] Rosuvastatin Calcium 1 tab PO BEDTIME 04/22/19 [History] Cefuroxime [Ceftin] 250 mg PO BID #20 tab 04/25/19 [Rx] Codeine/Promethazine [Phenergan with Codeine] 5 ml PO Q6H PRN #180 ml 04/25/19 [ Rx] predniSONE 20 mg PO WITHBREAKFAST #10 tab 04/25/19 [Rx] Patient Handouts: Community-Acquired Pneumonia, Adult Referrals: Iftkihar Little PA-C [Physician Assistant Case Manager] - (Follow up with Frankie Little in 2 weeks, lab and xray prior to appointment) - Discharge Summary/Plan Comment DC Time >30 min.: No - General Info Date of Service: 04/25/19 Admission Dx/Problem (Free Text: RML pneumonia Functional Status: Reports: Pain Controlled, Tolerating Diet, Ambulating - Review of Systems General: Reports: Weakness, Fatigue, Malaise. Denies: Fever HEENT: Reports: No Symptoms Pulmonary: Reports: Shortness of Breath, Cough Cardiovascular: Denies: Chest Pain, Edema, Lightheadedness Gastrointestinal: Denies: Abdominal Pain, Nausea, Vomiting Genitourinary: Reports: No Symptoms Musculoskeletal: Reports: No Symptoms Skin: Reports: No Symptoms Neurological: Reports: No Symptoms - Patient Data Vitals - Most Recent: Last Vital Signs Temp 96.6 F 04/25/19 08:00 Pulse 89 04/25/19 08:11 Resp 18 04/25/19 08:00 BP 138/78 04/25/19 08:14 Pulse Ox 95 04/25/19 08:00 Weight - Most Recent: 350 lb Lab Results - Last 24 hrs: Laboratory Results - last 24 hr 04/25/19 04/25/19 04/25/19 Range/Units 07:00 07:00 07:00 WBC 3.8 L (5.0-10.0) 10^3/uL RBC 4.67 (4.50-6.00) 10^6/uL Hgb 13.5 L (14.0-18.0) g/dL Hct 37.7 L (40.0-54.0) % MCV 80.7 L (82.0-94.0) fL MCH 28.9 (27.0-32.0) pg MCHC 35.8 (33.0-38.0) g/dL RDW Coeff of Lily 13.8 (11.0-15.0) % Plt Count 172 (150-400) 10^3/uL Neut % (Auto) 76.4 (35-85) % Lymph % (Auto) 14.9 (10-55) % [place] % (Auto) 8.2 (0-16) % Eos % (Auto) 0 (0-5) % Baso % (Auto) 0.5 (0-3) % Neut # (Auto) 2.87 (1.80-7.00) 10^3/uL Lymph # (Auto) 0.56 L (1.00-4.80) 10^3/uL [place] # (Auto) 0.31 (0.00-0.80) 10^3/uL Eos # (Auto) 0.00 (0.00-0.45) 10^3/uL Baso # (Auto) 0.02 10^3/uL Sodium 136 (136-145) mEq/L Potassium 4.1 (3.5-5.0) mEq/L Chloride 99 (98-106) mEq/L Carbon Dioxide 29 (21-32) mmol/L BUN 19 H (7-18) mg/dL Creatinine 0.9 (0.7-1.3) mg/dL Est Cr Clr Drug Dosing 141.71 mL/min Estimated GFR (MDRD) > 60 (>=60) mL/min Glucose 354 H* D (75-99) mg/dL Hemoglobin A1c 7.7 H (4.8-6.2) % Calcium 8.8 (8.4-10.1) mg/dL C-Reactive Protein 13.3 H (0.2-0.8) mg/dL ISABELLE Results - Last 24 hrs: Microbiology 04/23/19 08:10 Aerobic Blood Culture - Preliminary Blood - Venous - Lab Draw NO GROWTH AFTER 2 DAYS Anaerobic Blood Culture - Preliminary NO GROWTH AFTER 2 DAYS 04/23/19 08:05 Aerobic Blood Culture - Preliminary Blood - Venous NO GROWTH AFTER 2 DAYS Anaerobic Blood Culture - Preliminary NO GROWTH AFTER 2 DAYS Med Orders - Current: Current Medications Discontinued Medications Acetaminophen (Tylenol) 650 mg PO Q4H PRN PRN Reason: Pain (Mild 1-3)/fever Last Admin: 04/24/19 10:12 Dose: 650 mg Albuterol/Ipratropium (Duoneb 3.0-0.5 Mg/3 Ml) 3 ml NEB Q4H PRN PRN Reason: Shortness Of Breath/wheezing Albuterol/Ipratropium (Duoneb 3.0-0.5 Mg/3 Ml) 3 ml NEB QID PRN PRN Reason: Shortness Of Breath/wheezing Albuterol/Ipratropium (Duoneb 3.0-0.5 Mg/3 Ml) 3 ml NEB QID [facility] Last Admin: 04/25/19 08:11 Dose: 3 ml Albuterol/Ipratropium (Duoneb 3.0-0.5 Mg/3 Ml) 3 ml NEB Q4H PRN PRN Reason: Dyspnea Aspirin (Aspirin) 81 mg PO BEDTIME [facility] Last Admin: 04/24/19 19:38 Dose: 81 mg Ceftriaxone Sodium (Rocephin) 2 gm IVPUSH ONETIME ONE Stop: 04/22/19 12:20 Last Admin: 04/22/19 13:52 Dose: 2 gm Ceftriaxone Sodium (Rocephin) 1 gm IVPUSH Q24H [facility] Last Admin: 04/25/19 09:02 Dose: 1 gm Enoxaparin Sodium (Lovenox) 40 mg SUBCUT Q24H [facility] Last Admin: 04/22/19 13:36 Dose: Not Given Hydrochlorothiazide (Hydrochlorothiazide) 25 mg PO DAILY [facility] Hydrochlorothiazide (Hydrochlorothiazide) 25 mg PO DAILY [facility] Last Admin: 04/25/19 08:14 Dose: 25 mg Azithromycin 500 mg/ Sodium (Chloride) 250 mls @ 250 mls/hr IV Q24H [facility] Last Admin: 04/23/19 12:01 Dose: 250 mls/hr Sodium Chloride (Normal Saline) 1,000 mls @ 125 mls/hr IV ASDIRECTED [facility] Last Admin: 04/22/19 23:07 Dose: 125 mls/hr Azithromycin 500 mg/ Sodium (Chloride) 250 mls @ 250 mls/hr IV DAILY@1200 [facility] Last Admin: 04/25/19 09:06 Dose: 250 mls/hr Ibuprofen (Motrin) 400 mg PO Q4H PRN PRN Reason: Fever Last Admin: 04/23/19 23:09 Dose: 400 mg Losartan Potassium (Cozaar) 100 mg PO DAILY [facility] Losartan Potassium (Cozaar) 100 mg PO DAILY [facility] Last Admin: 04/25/19 08:14 Dose: 100 mg Methylprednisolone Sodium Succinate (Solu-Medrol) 125 mg IVPUSH DAILY [facility] Last Admin: 04/25/19 08:12 Dose: 125 mg Metoprolol Tartrate (Lopressor) 50 mg PO BID [facility] Last Admin: 04/25/19 08:11 Dose: 50 mg Losartan/Hydrochlorothiazide 100mg-25mg 1 tab PO DAILY [facility] Ptom Losartan/ (Hctz 100/25 Mg Tab) 1 tab PO DAILY [facility] Last Admin: 04/24/19 08:05 Dose: 1 tab Ptom Rosuvastatin 10 Mg Tab 10 mg PO BEDTIME [facility] Last Admin: 04/23/19 20:17 Dose: 10 mg Promethazine HCl/Codeine (Phenergan With Codeine) 5 ml PO Q6H PRN PRN Reason: Cough Last Admin: 04/25/19 02:24 Dose: 5 ml Promethazine HCl/Codeine (Phenergan With Codeine) Confirm Administered Dose 5 ml .ROUTE .STK-MED ONE Stop: 04/24/19 00:27 Last Admin: 04/24/19 00:25 Dose: Not Given Simvastatin (Zocor) 40 mg PO BEDTIME [facility] Last Admin: 04/22/19 19:59 Dose: 40 mg Simvastatin (Zocor) 40 mg PO BEDTIME [facility] Last Admin: 04/24/19 19:39 Dose: 40 mg Sodium Chloride (Saline Flush) 10 ml FLUSH ASDIRECTED PRN PRN Reason: Keep Vein Open Temazepam (Restoril) 15 mg PO BEDTIME PRN PRN Reason: Insomnia Last Admin: 04/23/19 23:01 Dose: 15 mg - Exam General: Reports: Alert, Oriented HEENT: Reports: Mucous Membr. Moist/[place] Neck: Reports: Supple Lungs: Reports: Clear to Auscultation, Normal Respiratory Effort Cardiovascular: Reports: Regular Rate, Regular Rhythm GI/Abdominal Exam: Normal Bowel Sounds, Soft, Non-Tender Extremities: Normal Inspection, No Pedal Edema Skin: Reports: Warm, Dry Neurological: Reports: No New Focal Deficit
== END 2019-04-25 11:30 | disposition home or self-care (01) | DRG 139 ==
LOC: CC.FCMC 10:04 → CC.MS 11:46 → UNDOADMOB 11:46 → CC.MS 12:10 → OBSVTOIN 04-24 09:12
PROVIDERS: ADMIT Nurse Practitioner; ATTEND Family Medicine
DX: J18.1 Lobar pneumonia, unspecified organism (principal); I10 Essential (primary) hypertension; E78.00 Pure hypercholesterolemia, unspecified; K21.9 Gastro-esophageal reflux disease without esophagitis; D70.9 Neutropenia, unspecified; D69.6 Thrombocytopenia, unspecified; Z87.891 Personal history of nicotine dependence; Z88.0 Allergy status to penicillin; Z88.8 Allergy status to other drugs, medicaments and biological substances; Z79.82 Long term (current) use of aspirin; Z79.899 Other long term (current) drug therapy
CPT/HCPCS: 36415; 71046; 80048; 81001; 83036; 85025; 86140; 87040; 94640; 96361; 96365; 96366; 96375; 96376; A9270-GY; G0378; J0456; J0696; J2930; J7030; J7050; J7620-GY